=== PATIENT | male | born 1990 | race American Indian/Alaskan Native ===

== ENCOUNTER 2017-08-16 19:33 | Emergency (ER) | payer OTHER ==
[2017-08-16 19:42] VITALS: RESP 18
--- NOTE | 2017-08-16 20:41 | ED PDOC ---
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 States that he hears firearms in the background while consoling his mother on the phone. States his stress over this situation, his grades have suffered and he had to take a semester off, also concerned about finances. States that he has thought about suicide but would never attempt it because his family is relying on him as first-generation and being the eldest. No plan. No HI. No drugs/alcohol. Past Medical History Reviewed: Historical Data, Nursing Documentation, Vital Signs Vital Signs: Last Vital Signs Temp 98.6 F 08/16/17 19:39 Pulse 110 H 08/16/17 19:39 Resp 18 08/16/17 19:39 BP 145/100 H 08/16/17 19:39 Pulse Ox 98 08/16/17 19:39 - Medical History PMH: No Chronic Diseases - Family History Family History: States: Unknown Family Hx - Allergies Allergies/Adverse Reactions: Allergies Allergy/AdvReac Type Severity Reaction Status Date / Time No Known Allergies Allergy Verified 08/16/17 19:42 Review of Systems ROS Statement: Except As Marked, All Systems Reviewed And Found Negative Psych: Positive for: Anxiety, Depression, Suicidal ideation Physical Exam - Reviewed Nursing Documentation Reviewed: Yes Vital Signs Reviewed: Yes - Physical Exam Appears: Positive for: Well, Non-toxic, No Acute Distress Head Exam: Positive for: ATRAUMATIC, NORMAL INSPECTION, NORMOCEPHALIC Skin: Positive for: Normal Color, Warm, DRY Eye Exam: Positive for: EOMI, Normal appearance, PERRL ENT: Positive for: Normal ENT Inspection Neck: Positive for: Normal, Painless ROM Cardiovascular/Chest: Positive for: Regular Rate, Rhythm Respiratory: Positive for: CNT, Normal Breath Sounds Gastrointestinal/Abdominal: Positive for: Normal Exam, Soft Back: Positive for: Normal Inspection Extremity: Positive for: Normal ROM Neurologic/Psych: Positive for: Alert, quality improvement coordinator (rn) II-XII, Oriented, Mood/Affect ( tearful, depressed). Negative for: Motor/Sensory Deficits - ECG O2 Sat by Pulse Oximetry: 98 Pulse Ox Interpretation: Normal Medical Decision Making Medical Decision MakinPM A/P: No PMHx p/w anxiety, depression, SI -patient has significant stressors in life, reasonably causing current state -alert, oriented, medically cleared at this standpoint, labs not needed -will get crisis to evaluate patient for safe discharge planning Disposition - Clinical Impression Clinical Impression: Anxiety - Disposition Referrals: Community Mental [facility] [Outside] Disposition: Routine/Home Disposition Time: 21:34 Condition: IMPROVED Instructions: Anxiety, Adult (DC), Suicide Prevention Forms: [facility] (Kosovan)
[2017-08-16 21:53] VITALS: BP 131/89; PULSE 94; TEMP 98.2; O2SAT 99
== END 2017-08-16 22:10 | disposition home or self-care (01) ==
LOC: H.ER 19:33
DX: F41.9 Anxiety disorder, unspecified (principal)